=== PATIENT | male | born 1955 | race Caucasian/White ===

== ENCOUNTER → 2017-12-10 10:32 | Outpatient (CLI) | payer OTHER, SELFPAY ==
--- NOTE | 2017-12-09 | IMM_PTH ---
PATIENT: ERICH BAUMANN Jr. LOC: [facility] U#:[id number] AGE/SX: 70/M ROOM: RE12/10/[address]: Dr. Rafael Soliz MD : 1955 BED: DIS: SPEC #: [id number] RECD: 12/11/17 11:04 STATUS: CHIRAG LAINEZBeth #: [id number] CHUY: 12/09/17 00:[address]: Rafael Soliz DEPT: IMMUNOHISTOCHEMISTRY RECD BY: Jacqueline Barone Tissues: Skin of leg, NOS Procedures: SMA (add) Vimentin (add) 34BE12 (add) Pankeratin (initial) S-100 (add) Comments: @ Specimen number changed from [id number] to [id number] @ on 12/11/17 at 1112 by ROBERTO. PHYSICIAN & INSTITUTION [place] [id number] SPECIMEN INFORMATION: Tissue Source: Right leg, suspicious lesion Clinical Info: Suspicious lesion Specimen Number: [id number] CPT code: 43223, 86941 x4 METHODOLOGY: Deparaffinized sections of prefer/formalin-fixed tissue or PAP/DQ stained slides are incubated with monoclonal/polyclonal antibodies/oligonucleotide probes. Localization is made via biotin free immunoperoxidase method. Appropriate controls are performed and reacted as expected. Results on target cell population are indicated in the following table: RESULTS: ANTIBODY / CLONE RESULT S-100 (4C4.9) negative AE1-3 (AE1/AE3/PCK26) negative 34BE12 (34BE12) negative Vimentin (V9) positive Actin (1A4) negative These tests were developed and their performance characteristics determined by [facility]. They may not have been cleared or approved by the U.S. Food and Drug Administration. The FDA has determined that such clearance or approval is not necessary. INTERPRETATION: Right leg, suspicious lesion: Consistent with dermatofibroma. AM:vernon 12/13/17
--- NOTE | 2017-12-09 09:00 | LES_PTH ---
PATIENT: ERICH BAUMANN Jr. LOC: [facility] U#:[id number] AGE/SX: 70/M ROOM: RE12/10/[address]: Dr. Rafael Soliz MD : 1955 BED: DIS: SPEC #: [id number] RECD: 12/10/17 12:06 STATUS: CHIRAG CHARISSA #: [id number] CHUY: 12/09/17 09:[address]: Rafael Soliz DEPT: SURGICAL PATHOLOGY RECD BY: Charles Bloom Tissues: Skin of leg, NOS Procedures: Surgery Specimen Level IV HEADER OPERATION: Right leg suspicious lesion biopsy PRE-OP DIAGNOSIS: Suspicious lesion TISSUE SUBMITTED: Right leg, suspicious lesion MICROSCOPIC DIAGNOSIS Skin lesion of right leg, biopsy: Consistent with dermatofibroma. AM:maciej 12/11/17 COMMENT Immunohistochemistry ([id number]) supports the above diagnosis. Case has been reviewed in consultation with Dr. Logn who concurs with the above diagnosis. IDC:SJ MICROSCOPIC DESCRIPTION Slides are reviewed. GROSS DESCRIPTION Received in fixative is one container labeled with the patient's name and designated right leg lesion. The specimen consists of a punch biopsy of gomez-white skin measuring 0.6 cm in diameter and 0.3 cm in length. The specimen is inked and submitted entirely in one cassette. It will be longitudinally bisected at the time of embedding. Lissy 12/10/17 TC: 5 CPT: 76331
== END ==
PROVIDERS: Visit Provider Family Medicine
DX: L98.8 Other specified disorders of the skin and subcutaneous tissue (principal)
CPT/HCPCS: 88305; 88341; 88342

== ENCOUNTER → 2017-12-11 10:27 | Outpatient (CLI) | payer OTHER, SELFPAY ==
[2017-12-11 12:47] LABS: Anion Gap 9 (5-15); BUN 15 mg/dL (7-18); BUN/Creat Ratio 20.1 RATIO (10-20); Calcium,Total 8.4 mg/dL (8.5-10.1); Chloride 106 mmol/L (98-107); Cholesterol 224 mg/dL (200); Creatinine, Serum 0.75 mg/dL (0.70-1.30); EST Glomerular Filtration Rate 113 mL/min (>60); Est Glom Filt Rate - Afr Amer 136 mL/min (>60); Glucose 112 mg/dL (74-106); High Density Lipoprotein 45 mg/dL; PSA,Total - Annual Screen 0.35 ng/mL (0.00-4.00); Potassium 4.3 mmol/L (3.5-5.1); Sodium Level 142 mmol/L (136-145); Thyroid Stim Hormone (TSH) 2.54 uIU/mL (0.358-3.74); Triglycerides 115 mg/dL; Very Low Density Lipoprotein 23 mg/dL (5-40)
[2017-12-12 09:46] LABS: Vitamin D,25 Hydroxy 19.4 ng/mL (29.95-100.01)
== END ==
PROVIDERS: Family Provider Family Medicine; PCP Family Medicine; Visit Provider Family Medicine
DX: Z00.00 Encounter for general adult medical examination without abnormal findings (principal); Z12.5 Encounter for screening for malignant neoplasm of prostate
CPT/HCPCS: 36415; 80048; 80061; 82306; 84153; 84443; G0103

== ENCOUNTER → 2019-05-02 09:57 | Outpatient (CLI) | payer OTHER, SELFPAY ==
[2019-05-02 12:38] LABS: Vitamin D,25 Hydroxy 33.8 ng/mL (29.95-100.01)
[2019-05-02 12:41] LABS: Anion Gap 6 (5-15); BUN 14 mg/dL (7-18); BUN/Creat Ratio 19.6 RATIO (10-20); Calcium,Total 8.7 mg/dL (8.5-10.1); Chloride 106 mmol/L (98-107); Cholesterol 198 mg/dL (200); Creatinine, Serum 0.71 mg/dL (0.70-1.30); EST Glomerular Filtration Rate 119 mL/min (>60); Est Glom Filt Rate - Afr Amer 143 mL/min (>60); Glucose 104 mg/dL (74-106); High Density Lipoprotein 41 mg/dL; PSA,Total - Annual Screen 0.26 ng/mL (0.00-4.00); Potassium 4.4 mmol/L (3.5-5.1); Sodium Level 139 mmol/L (136-145); Triglycerides 113 mg/dL; Very Low Density Lipoprotein 23 mg/dL (5-40)
== END ==
PROVIDERS: Family Provider Family Medicine; PCP Family Medicine; Referring Provider Family Medicine; Visit Provider Family Medicine
DX: Z00.00 Encounter for general adult medical examination without abnormal findings (principal)
CPT/HCPCS: 36415; 80048; 80061; 82306; 84153; 84443; G0103

== ENCOUNTER → 2020-06-25 09:36 | Outpatient (CLI) | payer OTHER, SELFPAY ==
[2020-06-25 12:48] LABS: Anion Gap 3 (5-15); BUN 18 mg/dL (7-18); BUN/Creat Ratio 27.8 RATIO (10-20); Calcium,Total 9.3 mg/dL (8.5-10.1); Chloride 108 mmol/L (98-107); Cholesterol 195 mg/dL (200); Creatinine, Serum 0.65 mg/dL (0.70-1.30); EST Glomerular Filtration Rate 132 mL/min (>60); Est Glom Filt Rate - Afr Amer 160 mL/min (>60); Glucose 105 mg/dL (74-106); High Density Lipoprotein 44 mg/dL; Potassium 4.1 mmol/L (3.5-5.1); Sodium Level 137 mmol/L (136-145); Triglycerides 93 mg/dL; Very Low Density Lipoprotein 19 mg/dL (5-40)
== END ==
PROVIDERS: PCP Family Medicine; Referring Provider Family Medicine; Visit Provider Family Medicine
DX: Z00.00 Encounter for general adult medical examination without abnormal findings (principal); N52.9 Male erectile dysfunction, unspecified
CPT/HCPCS: 36415; 80048; 80061; 84403

== ENCOUNTER → 2020-07-05 12:57 | Outpatient (CLI) | payer OTHER, SELFPAY | PROVIDERS: PCP Family Medicine; Referring Provider Family Medicine; Visit Provider Family Medicine | DX: N52.9 Male erectile dysfunction, unspecified (principal) | CPT/HCPCS: 36415; 84403 ==

== ENCOUNTER 2021-03-18 17:44 | Emergency (ER) | payer OTHER, SELFPAY ==
[2021-03-18 17:45] VITALS: BP 154/100; PULSE 63; RESP 18; TEMP 36.1; O2SAT 99; BMI 37.2
--- NOTE | 2021-03-18 17:46 | ED.RN ---
ALREADY TESTED BY [facility]
--- NOTE | 2021-03-18 18:36 | EDS_ITS ---
HPI History of Present Illness Chief Complaint: Upper Extremity Injury Informant: patient Occured/Mechanism Mechanism/Context: Yes work related Onset/Context/Timing Onset: Days Context: Gradual Onset Timing: Continuous Quality of Pain: Dull and Aching Current Severity: Mild Maximum Severity: Mild Narrative Narrative: 65-year-old male history of CAD with prior LA. He is right-hand dominant. Patient works at the [email or web address]. 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 He states on Sunday he had to do a lot of lifting and moving of objects on like an assembly line type of activity. Stacking them wrapping them and putting them of boxes. Some of the work was over his head physically. He just been complaining of left shoulder plain it began primarily on Sunday. No fall or direct trauma. He thinks is just an overuse. He said he is not used to doing this type of work. 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 Prior similar symptoms: No Recent Illness/Hospitalization: No PFSH PFSH Medical History Cardiac disease Heart attack HTN (hypertension) Home Medications carvedilol 6.25 mg PO/SL BID 03/18/21 [History Last Taken Unknown] citalopram 20 mg PO/SL DAILY 03/18/21 [History Last Taken Unknown] hydrochlorothiazide 50 mg PO DAILY 03/18/21 [History Last Taken Unknown] Allergy/AdvReac Type Severity Reaction Status Date / Time Iodinated Contrast Media Allergy Hives Verified 03/18/21 18:02 [DYEE] Surgical History S/P reconstruction of ligament of knee Social History Smoking Status: Never smoker ROS ROS ED ROS Narrative Denies recent illness. Review of Systems ROS Unobtainable: Denies due to encephalopathy Constitutional Constitutional ED: Denies fever(s) Eyes Eyes: Denies change in vision ENT ENT ED: Denies ear pain Cardiovascular Cardiovascular: Denies chest pain Respiratory/Chest Respiratory/Chest: Denies dyspnea Gastrointestinal Gastrointestinal: Denies abdominal pain, nausea or vomiting Genitourinary Genitourinary ED: Denies dysuria Musculoskeletal Musculoskeletal: Denies myalgias Integumentary Denies rash Neurologic Neurologic: Denies headache(s) Psychiatric Psychiatric: Denies depression Endocrine Endocrinology: Denies polyuria Hematologic/Lymphatic Hematologic/Lymphatic: Denies easy bruising Allergic/Immunologic Allergic/Immunologic ED: Denies urticaria EXAM Physical Exam Narrative Exam Narrative: For your male no acute distress vital signs stable afebrile. Exam normal except his left shoulder does have some stiffness and soreness. He has normal range of motion. His AB and AB duction. He has normal flexion- extension of the left elbow and wrist. Normal digital developer strength of his left hand. Normal sensation and radial pulse. There is no gross bony deformity. There is no redness, warmth or swelling. Const Vital Signs: 03/18/21 17:45 Temperature 97 F L Temperature Source Temporal Pulse Rate 63 Respiratory Rate 18 Blood Pressure 154/100 H Blood Pressure Mean 118 Pulse Ox 99 Positive well nourished, well developed and obese; Negative for cachectic, contractures or unkempt General Appearance ED: well developed and NAD; Negative for unkempt, cachectic, contractures, cyanotic or diaphoretic Nutritional Appearance: obese; Negative for cachectic HEENT Reports moist mucous membranes normocephalic and atraumatic; Negative for trauma Eyes PERRL and EOMs intact bilaterally Neck full ROM and supple General: Negative for tenderness Chest Wall inspection of chest normal and palpation of chest normal Resp normal respiratory effort and clear to auscultation bilaterally Auscultation: Negative for rales, rhonchi or wheezes Cardio regular rate, regular rhythm, S1 normal heart sound, S2 normal heart sound and no murmurs GI non-tender, non-distended and no masses Auscultation: normoactive bowel sounds Palpation: soft; Negative for tender, guarding or rebound tenderness present Back/Spine no CVA tenderness Extremity normal to inspection and full ROM Extremity Narrative: Mild discomfort left shoulder. Full AB and adduction. He can lift his arm over his shoulder. Is normal internal/external rotation of shoulder with some mild discomfort. There is no bony deformity. He has full flexion-extension left elbow and wrist. Normal digital developer strength and sensation left hand. Neuro oriented x3, moves all extremities, no focal motor deficits and no sensory deficits noted Sensorium / Orientation: alert, oriented to person, oriented to place and oriented to time; Negative for orientation impaired, lethargic or stuporous Psych mental status grossly normal Appearance: Negative for unkempt Skin Lesions: no lesions Rashes: no rashes MDM MDM MDM Narrative Medical decision making narrative: 65-year-old male with left shoulder strain from an overuse syndrome from using a lot at work. Doing work they typically doesn't do. Ice to the area. Motrin for pain and inflammation. Follow-up with corporate care as needed. Patient does not need any imaging there was no direct trauma. Discharge Plan Triage Chief Complaint: Upper Extremity Injury ED Provider: Harjeet Haro Dx/Rx/DC Orders Clinical Impression: Left shoulder strain, Overuse syndrome Instructions: ED Muscle Strain, Extremity Prescriptions: No Action hydrochlorothiazide 50 mg tablet 50 mg PO DAILY RF: 0 carvedilol 6.25 mg PO/SL BID RF: 0 citalopram 20 mg PO/SL DAILY RF: 0 Primary Care Provider: Rafael Soliz Referrals: Corporate,[facility] [GROUP OF PHYSICIANS] - 1 Week Rafael Soliz MD [Primary Care Provider] - Activity Restrictions/Additional Instructions: You have strain or overuse the left shoulder. Needs to be rested. Ice. Motrin for pain and inflammation. Follow-up with corporate care if not improving. Return if worse. Approach on limited duty work with limited use of your left shoulder, limited work over your head and limited lifting with your left arm of no more than 10 pounds. Ice to decrease pain and inflammation. Motrin for pain and inflammation. Disposition Disposition: Home, Self Care
[2021-03-18 18:46] VITALS: BP 136/86; PULSE 86; RESP 16; TEMP 36.7; O2SAT 98
== END 2021-03-18 18:47 | disposition home or self-care (01) ==
PROVIDERS: Emergency Provider Emergency Medicine; PCP Family Medicine
DX: S46.912A Strain of unspecified muscle, fascia and tendon at shoulder and upper arm level, left arm, initial encounter (principal); E66.9 Obesity, unspecified; I25.2 Old myocardial infarction; I25.10 Atherosclerotic heart disease of native coronary artery without angina pectoris; I10 Essential (primary) hypertension; Z79.899 Other long term (current) drug therapy; X50.0XXA Overexertion from strenuous movement or load, initial encounter
CPT/HCPCS: 99282

== ENCOUNTER → 2021-10-06 | Outpatient (CLI) | payer OTHER, SELFPAY ==
[2021-10-06 15:58] LABS: Anion Gap 6 (5-15); BUN 18 mg/dL (7-18); BUN/Creat Ratio 19.6 RATIO (10-20); Calcium,Total 9.4 mg/dL (8.5-10.1); Chloride 101 mmol/L (98-107); Cholesterol 250 mg/dL (200); Creatinine, Serum 0.92 mg/dL (0.70-1.30); EST Glomerular Filtration Rate 88 mL/min (>60); Est Glom Filt Rate - Afr Amer 106 mL/min (>60); Glucose 135 mg/dL (74-106); High Density Lipoprotein 58 mg/dL; PSA,Total - Annual Screen 0.19 ng/mL (0.00-4.00); Potassium 4.3 mmol/L (3.5-5.1); Sodium Level 138 mmol/L (136-145); Triglycerides 111 mg/dL; Very Low Density Lipoprotein 22 mg/dL (5-40)
== END | disposition home or self-care (01) ==
LOC: MFPLAB 11:41
PROVIDERS: PCP Family Medicine; Referring Provider Family Medicine; Visit Provider Nurse Practitioner Family
DX: Z13.1 Encounter for screening for diabetes mellitus (principal); Z13.220 Encounter for screening for lipoid disorders; Z12.5 Encounter for screening for malignant neoplasm of prostate
CPT/HCPCS: 36415; 80048; 80061; 84153; G0103

== ENCOUNTER → 2021-10-24 | Outpatient (CLI) | payer MEDICARE, SELFPAY ==
[2021-10-24 17:31] LABS: Hemoglobin A1c 6.4 % (3.8-5.6)
== END | disposition home or self-care (01) ==
LOC: MFPLAB 11:44
PROVIDERS: Nurse Practitioner Family; PCP Family Medicine; Visit Provider Family Medicine
DX: R73.01 Impaired fasting glucose (principal)
CPT/HCPCS: 36415; 83036

== ENCOUNTER → 2022-11-27 | Outpatient (CLI) | payer MEDICARE, OTHER, SELFPAY ==
[2022-11-27 13:04] LABS: Anion Gap 7 (5-15); BUN 15 mg/dL (7-18); BUN/Creat Ratio 21.6 RATIO (10-20); Calcium,Total 9.6 mg/dL (8.5-10.1); Chloride 103 mmol/L (98-107); Cholesterol 223 mg/dL (200); Creatinine, Serum 0.69 mg/dL (0.70-1.30); EST Glomerular Filtration Rate 121 mL/min (>60); Est Glom Filt Rate - Afr Amer 146 mL/min (>60); Glucose 123 mg/dL (74-106); High Density Lipoprotein 40 mg/dL; PSA,Total - Annual Screen 0.24 ng/mL (0.00-4.00); Potassium 4.2 mmol/L (3.5-5.1); Sodium Level 138 mmol/L (136-145); Triglycerides 155 mg/dL; Very Low Density Lipoprotein 31 mg/dL (5-40)
[2022-11-27 14:01] LABS: Hemoglobin A1c 6.5 % (3.8-5.6)
== END | disposition home or self-care (01) ==
LOC: MFPLAB 10:13
PROVIDERS: PCP Family Medicine; Visit Provider Family Medicine
DX: Z00.00 Encounter for general adult medical examination without abnormal findings (principal); R73.03 Prediabetes; Z12.5 Encounter for screening for malignant neoplasm of prostate; Z13.6 Encounter for screening for cardiovascular disorders
CPT/HCPCS: 36415; 80048; 80061; 83036; 84153; G0103

== ENCOUNTER → 2023-03-28 | Outpatient (CLI) | payer MEDICARE, OTHER, SELFPAY ==
[2023-03-28 15:24] LABS: Hematocrit 44.8 % (40-54); Hemoglobin 14.6 g/dL (13.0-16.5); Mean Corp Hgb Conc 32.6 g/dL (32-36); Mean Corpuscular Hgb 30.9 pg (27.0-32.0); Mean Corpuscular Volume 94.9 fL (80-94); Mean Platelet Vol. 11.7 fl (6.2-12.0); Platelet Count 275 K/mm3 (150-450); RBC Distribution Width CV 13.1 % (11.6-14.6); RBC Distribution Width SD 45.8 fl (35.1-43.9); Red Blood Count 4.72 M/mm3 (4.6-6.2); White Blood Count 8.5 K/mm3 (4.4-11.0)
[2023-03-28 16:26] LABS: Homocysteine 5.8 umol/L (3.2-10.7)
[2023-03-28 16:58] LABS: Progesterone Level 0.42 ng/mL (See Comment); Vitamin D,25 Hydroxy 36.4 ng/mL
[2023-03-28 20:02] LABS: ALB/GLOB Ratio 0.9 RATIO (0.9-2.4); AST(SGOT) 14 U/L (15-37); Alanine Aminotransfer ALT/SGPT 39 U/L (16-61); Albumin, Serum 3.7 g/dL (3.2-5.0); Alkaline Phosphatase 64 U/L (45-117); Anion Gap 7 (5-15); BUN 17 mg/dL (7-18); BUN/Creat Ratio 21.7 RATIO (10-20); Calcium,Total 9.4 mg/dL (8.5-10.1); Chloride 104 mmol/L (98-107); Creatinine, Serum 0.78 mg/dL (0.70-1.30); EST Glomerular Filtration Rate 105 mL/min (>60); Est Glom Filt Rate - Afr Amer 127 mL/min (>60); Estradiol 41.5 pg/mL; Follicle Stimulating Hormone 2.9 mIU/mL; Globulin 4.3 g/dL (2.2-4.2); Glucose 112 mg/dL (74-106); Iron 85 ug/dL (65-175); Luteinizing Hormone 3.9 mIU/mL; Magnesium 2.6 mg/dL (1.6-2.6); PSA,Total- Diagnostic 0.25 ng/mL (0.0-4.0); Potassium 3.9 mmol/L (3.5-5.1); Prolactin 8.4 ng/mL; Sodium Level 138 mmol/L (136-145); Thyroid Stim Hormone (TSH) 2.58 uIU/mL (0.358-3.74)
[2023-03-29 15:17] LABS: Vitamin B12 457 pg/mL (211-911)
[2023-03-29 16:22] LABS: Cholesterol 213 mg/dL (200); Free T3 2.9 pg/mL (2.18-3.98); High Density Lipoprotein 45 mg/dL; T4 Free Direct 1.08 ng/dL (0.76-1.46); T4 Total, Thyroxin 10.2 ug/dL (4.5-12.1); Triglycerides 168 mg/dL; Very Low Density Lipoprotein 34 mg/dL (5-40)
[2023-03-29 19:11] LABS: Hemoglobin A1c 6.5 % (3.8-5.6)
[2023-04-02 12:08] LABS: Insulin Like Growth Factor 96 ng/mL (59-230); Sex Hormone-binding Globulin 25.9 nmol/L (19.3-76.4); Testosterone, % Free 2.54 % (1.50-4.20); Testosterone, Free 2.97 ng/dL (5.00-21.00); Testosterone, Total 117 ng/dL (264-916)
== END | disposition home or self-care (01) ==
PROVIDERS: PCP Family Medicine; Referring Provider Registered Nurse; Visit Provider Registered Nurse
DX: R53.82 Chronic fatigue, unspecified (principal); M62.81 Muscle weakness (generalized)
CPT/HCPCS: 36415; 80053; 80061; 82306; 82533; 82607; 82627; 82670; 82746; 83001; 83002; 83036; 83090; 83540; 83735; 84144; 84146; 84153; 84270; 84305; 84402; 84403; 84436; 84439; 84443; 84481; 85027; 86140; 82626

== ENCOUNTER → 2023-05-28 | Outpatient (CLI) | payer MEDICARE, OTHER, SELFPAY ==
[2023-05-28 12:16] LABS: Absolute Lymphocyte Count 1.28 X10^3/uL (0.83-4.51); Absolute Neutrophil Count 6.7 X10^3/uL (2.0-7.7); Basophil# 0.04 X10^3/uL; Basophil% 0.4 % (0-1); Eosinophil# 0.23 X10^3/uL; Eosinophils% 2.5 % (0-5); Hematocrit 43.9 % (40-54); Hemoglobin 13.9 g/dL (13.0-16.5); Lymphocyte # 1.28 X10^3/ul (0.83-4.51); Lymphocyte % 14.2 % (19-41); Mean Corp Hgb Conc 31.7 g/dL (32-36); Mean Corpuscular Hgb 30.3 pg (27.0-32.0); Mean Corpuscular Volume 95.6 fL (80-94); Mean Platelet Vol. 11.3 fl (6.2-12.0); Monocyte# 0.71 X10^3/uL; Monocyte% 7.9 % (0-10); NRBC Flagged by Analyzer 0 % (0-5); Neutrophil # 6.74 X10^3/uL (2.7-7.7); Neutrophil % 74.7 % (47-70); Platelet Count 260 K/mm3 (150-450); RBC Distribution Width SD 45.7 fl (35.1-43.9); Red Blood Count 4.59 M/mm3 (4.6-6.2)
[2023-05-28 13:09] LABS: PSA,Total- Diagnostic 0.26 ng/mL (0.0-4.0)
== END | disposition home or self-care (01) ==
LOC: MFPLAB 10:35
PROVIDERS: PCP Family Medicine; Visit Provider Family Medicine
DX: E29.1 Testicular hypofunction (principal); R39.11 Hesitancy of micturition
CPT/HCPCS: 36415; 84153; 84403; 85025

== ENCOUNTER 2025-05-20 12:38 | Emergency (ER) | payer OTHER, MEDICARE, SELFPAY ==
[2025-05-20 12:39] VITALS: BP 112/82; PULSE 67; RESP 20; TEMP 36.8; O2SAT 97; BMI 38.6
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
[2025-05-20] MEDS: DiphenhydrAMINE 50 MG/ML Syringe 25 MG IV (13:19)
[2025-05-20 13:21] LABS: Hematocrit 45.9 % (40-54); Hemoglobin 15.1 g/dL (13.0-16.5); Immature Granulocytes Count 0.060 X10^3/uL (0.0-0.0); Mean Corp Hgb Conc 32.9 g/dL (32-36); Mean Corpuscular Volume 95.8 fL (80-94); Mean Platelet Vol. 10.1 fl (6.2-12.0); NRBC Flagged by Analyzer 0 % (0-5); Platelet Count 210 K/mm3 (150-450); RBC Distribution Width CV 14.5 % (11.6-14.6); RBC Distribution Width SD 51.1 fl (35.1-43.9); Red Blood Count 4.79 M/mm3 (4.6-6.2); White Blood Count 8.3 K/mm3 (4.4-11.0)
[2025-05-20 13:31] LABS: Prothrombin Time (Protime)PT. 20.3 SECONDS (11.7-14.9)
[2025-05-20 13:41] LABS: Anion Gap 13 (5-15); BUN 21 mg/dL (4-19); BUN/Creat Ratio 25.3 RATIO (10-20); Calcium,Total 8.7 mg/dL (7.6-11.0); Carbon Dioxide 19.1 mmol/L (21.0-32.0); Chloride 103 mmol/L (98-108); Estimated Creatinine Clearance 103.51 ml/min (50-250); Glucose 139 mg/dL (70-99); Potassium 4.4 mmol/L (3.3-5.1)
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
[2025-05-20 14:38] VITALS: BP 108/58; PULSE 62; O2SAT 95
[2025-05-20 16:00] VITALS: BP 111/84; PULSE 71; RESP 18; O2SAT 93
[2025-05-20 16:11] VITALS: BP 111/84; PULSE 71; RESP 18; TEMP 36.8; O2SAT 93
== END 2025-05-20 16:31 | disposition home or self-care (01) ==
PROVIDERS: Emergency Provider Emergency Medicine; PCP Family Medicine; Visit Provider Emergency Medicine
DX: S20.212A Contusion of left front wall of thorax, initial encounter (principal); V44.5XXA Car driver injured in collision with heavy transport vehicle or bus in traffic accident, initial encounter; Y92.410 Unspecified street and highway as the place of occurrence of the external cause; Y99.0 Civilian activity done for income or pay; Z87.891 Personal history of nicotine dependence
CPT/HCPCS: 71260; 74177; 80048; 85025; 85610; 96374; 96375; 99285; Q9967; A4216; J2405